=== PATIENT | female | born 1940 | race Caucasian/White ===

== ENCOUNTER 2020-06-15 11:59 | Emergency (ER) | payer MEDICARE ==
[~2020-06-15] VITALS: Ht 160 cm; Wt 50.0 kg
[2020-06-15 12:08] VITALS: BP 118/68
--- NOTE | 2020-06-15 12:30 | NUR ---
PT AMBULATED TO RESTROOM WITH CANE TO PROVIDE URINE SAMPLE. UA ORDERED PER PROTOCOL AND SENT TO LAB.
[2020-06-15 12:38] LABS: MICROSCOPIC AUTO
[2020-06-15] MEDS ORDERED: CEFDINIR 300 MG CAPSULE ONE (12:47)
--- NOTE | 2020-06-15 12:49 | NUR ---
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
[2020-06-15 12:58] LABS: BASOPHILS # (AUTO) 0.02 x10^3/uL (0-0.1); BASOPHILS % (AUTO) 0 % (0-1); EOSINOPHILS # (AUTO) 0.15 x10^3/uL (0-0.4); EOSINOPHILS % (AUTO) 2 % (1-7); LYMPHOCYTES # (AUTO) 1.18 x10^3/uL (1-3.4); LYMPHOCYTES % (AUTO) 17 % (22-44); MD NO; MEAN CORPUSCULAR HEMOGLOBIN 29.6 pg (27.0-34.8); MEAN CORPUSCULAR HGB CONC 33.5 g/dL (32.4-35.8); MEAN CORPUSCULAR VOLUME 88.3 fL (80-100); MEAN PLATELET VOLUME 7.7 fL (7.4-10.4); MONOCYTES # (AUTO) 0.46 x10^3/uL (0.2-0.8); MONOCYTES % (AUTO) 7 % (2-9); NEUTROPHILS # (AUTO) 5.29 x10^3/uL (1.8-6.8); NEUTROPHILS % (AUTO) 75 % (42-75); PLATELET COUNT 333 x10^3/uL (130-400); RED BLOOD COUNT 4.78 x10^6/uL (3.82-5.3); RED CELL DISTRIBUTION WIDTH 14.7 % (9.6-15.2)
[2020-06-15] MEDS ORDERED: CEFDINIR 300 MG CAPSULE PO ONE (13:00)
[2020-06-15 13:01] LABS: ANION GAP 6 mmol/L (5-15); CALCIUM 8.7 mg/dL (8.5-10.1); CHLORIDE 108 mmol/L (98-107); CREATININE 0.72 mg/dL (0.55-1.02)
--- NOTE | 2020-06-15 13:09 | NUR ---
ALL RESULTS ARE BACK AT THIS TIME. CHART UP FOR RECHECK.
== END 2020-06-15 13:50 | disposition home or self-care (01) ==
LOC: ED 13:32
DX: N30.00 Acute cystitis without hematuria (principal); E78.00 Pure hypercholesterolemia, unspecified
CPT/HCPCS: 36415; 80048; 81001; 85025; 87077; 87086; 87186; 99283

== ENCOUNTER 2020-11-19 13:04 | Emergency (ER) | payer MEDICARE ==
[~2020-11-19] VITALS: Ht 157.5 cm; Wt 48.8 kg
--- NOTE | 2020-11-19 13:04 | NUR ---
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
[2020-11-19] MEDS ORDERED: SODIUM CHLORIDE FLUSH 10ML SYR IVF ONE (13:30)
--- NOTE | 2020-11-19 14:01 | NUR ---
PT UPRIGHT ON GURNEY AWAKE, CALM & COMFORTABLE, RESPONDS APPROP TO STAFF, NAD, NO NEEDS AT THIS TIME, CALL LIGHT WITHIN REACH.
[2020-11-19 14:08] LABS: BASOPHILS % (AUTO) 1 % (0-1); EOSINOPHILS % (AUTO) 1 % (1-7); LYMPHOCYTES % (AUTO) 15 % (22-44); MEAN CORPUSCULAR HEMOGLOBIN 30.7 pg (27.0-34.8); MEAN CORPUSCULAR HGB CONC 33.6 g/dL (32.4-35.8); MEAN PLATELET VOLUME 7.5 fL (7.4-10.4); MONOCYTES % (AUTO) 6 % (2-9); NEUTROPHILS % (AUTO) 78 % (42-75); PLATELET COUNT 318 x10^3/uL (130-400); RED BLOOD COUNT 4.58 x10^6/uL (3.82-5.3); RED CELL DISTRIBUTION WIDTH 14.1 % (9.6-15.2)
[2020-11-19 14:09] LABS: MD NO
[2020-11-19 14:16] LABS: ALANINE AMINOTRANSFERASE 20 U/L (12-78); ALBUMIN 3.6 g/dL (3.4-5.0); ANION GAP 7 mmol/L (5-15); CALCIUM 8.9 mg/dL (8.5-10.1); CHLORIDE 109 mmol/L (98-107); CREATININE 0.74 mg/dL (0.55-1.02)
[2020-11-19 14:20] LABS: ALKALINE PHOSPHATASE 70 U/L (45-117); BILIRUBIN,TOTAL 0.5 mg/dL (0.2-1.0); TOTAL PROTEIN 6.8 g/dL (6.4-8.2); TROPONIN I < 0.015 ng/mL (0.000-0.045)
[2020-11-19 14:53] VITALS: BP 124/75
--- NOTE | 2020-11-19 15:35 | NUR ---
Patient given discharge instructions and they have confirmed that they understand the instructions. Patient ambulatory with steady gait via personal 4-pt cane.
== END 2020-11-19 15:37 | disposition home or self-care (01) ==
LOC: ED 15:15
DX: R11.0 Nausea (principal); I10 Essential (primary) hypertension; R94.31 Abnormal electrocardiogram [ECG] [EKG]; R07.89 Other chest pain; E78.00 Pure hypercholesterolemia, unspecified; Z87.891 Personal history of nicotine dependence
CPT/HCPCS: 36415; 71045; 80053; 83690; 84484; 85025; 93005; 99285

== ENCOUNTER 2021-05-19 13:31 | Emergency (ER) | payer MEDICARE ==
[~2021-05-19] VITALS: Ht 160 cm; Wt 49.0 kg
--- NOTE | 2021-05-19 14:32 | NUR ---
PATIENT TO ROOM FROM LOBBY
[2021-05-19 15:22] LABS: MICROSCOPIC NOT IND
[2021-05-19 15:24] LABS: BASOPHILS % (AUTO) 1 % (0-1); EOSINOPHILS % (AUTO) 2 % (1-7); LYMPHOCYTES % (AUTO) 20 % (22-44); MEAN CORPUSCULAR HEMOGLOBIN 30.6 pg (27.0-34.8); MEAN CORPUSCULAR HGB CONC 33.8 g/dL (32.4-35.8); MEAN PLATELET VOLUME 7.5 fL (7.4-10.4); MONOCYTES % (AUTO) 6 % (2-9); NEUTROPHILS % (AUTO) 71 % (42-75); PLATELET COUNT 369 x10^3/uL (130-400); RED BLOOD COUNT 4.84 x10^6/uL (3.82-5.3); RED CELL DISTRIBUTION WIDTH 13.9 % (9.6-15.2)
[2021-05-19 15:29] LABS: ALANINE AMINOTRANSFERASE 21 U/L (12-78); ALBUMIN 3.6 g/dL (3.4-5.0); ANION GAP 3 mmol/L (5-15); CALCIUM 9.3 mg/dL (8.5-10.1); CHLORIDE 108 mmol/L (98-107); CREATININE 0.72 mg/dL (0.55-1.02)
[2021-05-19] MEDS ORDERED: SODIUM CHLORIDE 0.9% 1,000ML IVBOLUS ONE (15:30)
[2021-05-19 15:31] LABS: ALKALINE PHOSPHATASE 99 U/L (45-117); BILIRUBIN,TOTAL 0.7 mg/dL (0.2-1.0); TOTAL PROTEIN 7.6 g/dL (6.4-8.2)
--- NOTE | 2021-05-19 15:55 | NUR ---
PT TO CT.
--- NOTE | 2021-05-19 15:55 | NUR ---
LATE ENTRY: FIRST CONTACT: "UTI SINCE LAST TUESDAY, ECOLI, PLACED ON MACROBID. I GET DIARRHEA, THE PAIN IS EXCURCIATING"8 EPISODES FROM 8-10, TOOK IMMODUM THIS AMHX OF C-DIFF. PT POSTIONED TO COMFORT IN BED. ATTACHED TO MONITORS.HARI BAHENA
[2021-05-19] MEDS ORDERED: OMNIPAQUE 350 MG/ML, 100ML BOTTLE ONE (16:15)
[2021-05-19 17:25] VITALS: BP 115/64
--- NOTE | 2021-05-19 17:26 | NUR ---
Patient/Caregiver given discharge instructions and they have confirmed that they understand the instructions. Patient ambulatory with steady gait. NAD, all questions answered appropriately, denies additional needs at this time. No personal belongings left in room after discharge.
[2021-05-19 18:46] LABS: CLOSTRIDIUM DIFFICILE ANTIGEN NEGATIVE; CLOSTRIDIUM DIFFICILE TOXIN NEGATIVE (Negative)
== END 2021-05-19 17:27 | disposition home or self-care (01) ==
LOC: ED 15:31
DX: R30.0 Dysuria (principal); R35.0 Frequency of micturition; R19.7 Diarrhea, unspecified; E78.00 Pure hypercholesterolemia, unspecified; I10 Essential (primary) hypertension
CPT/HCPCS: 36415; 74177; 80053; 81003; 85025; 87324; 89055; 96360; 99285; J7030; Q9967